=== PATIENT | male | born 1975 | race Caucasian/White ===

== ENCOUNTER 2018-03-10 16:43 | Emergency (ER) | payer MEDICAID ==
[~2018-03-10] VITALS: Ht 180.3 cm; Wt 73.5 kg
[2018-03-10 16:57] VITALS: BP 146/93
== END 2018-03-10 18:14 | disposition home or self-care (01) ==
LOC: ER 16:44
DX: R10.9 Unspecified abdominal pain (principal); R11.0 Nausea; R19.7 Diarrhea, unspecified
CPT/HCPCS: 99281